=== PATIENT | female | born 1950 | race Caucasian/White ===

== ENCOUNTER → 2023-04-14 18:24 | Outpatient (CLI) | payer MEDICARE, SELFPAY ==
--- NOTE | 2023-04-14 18:26 | DI.RAD.S_ITS ---
PROCEDURE: XR FOOT LT MIN 3V INDICATIONS: Foot pain TECHNIQUE: 3 views of the foot were acquired. COMPARISON: None. FINDINGS: Bones: No fractures or dislocations. No suspicious bony lesions. Soft tissues: No tibiotalar joint effusion. Achilles tendon appears normal. IMPRESSION: Unremarkable left foot radiographs Approved by: Carter Telles M.D. on 04/15/2023 at 10:41
== END ==
PROVIDERS: Referring Provider Nurse Practitioner Family; Visit Provider Nurse Practitioner Family
DX: M79.672 Pain in left foot (principal)
CPT/HCPCS: 73630

== ENCOUNTER → 2023-05-16 17:17 | Outpatient (CLI) | payer MEDICARE, SELFPAY ==
--- NOTE | 2023-05-16 17:19 | DI.RAD.S_ITS ---
PROCEDURE: XR ANKLE LT MIN 3V INDICATIONS: Left ankle swelling TECHNIQUE: 3 views of the ankle were acquired. COMPARISON: [facility], CR, XR FOOT LT MIN 3V, 04/14/2023, 18:27. FINDINGS: Bones: No acute fractures or dislocations. Ankle mortise is normally aligned. No suspicious bony lesions. Soft tissues: Nonspecific soft tissue edema surrounding the ankle. IMPRESSION: No acute osseous abnormality. If clinical suspicion and/or symptoms persist, additional imaging with repeat plain films, or advanced imaging (e.g. CT, MRI) may be helpful for further assessment. Approved by: Pedro Lopez M.D. on 05/16/2023 at 18:01
--- NOTE | 2023-05-16 17:19 | DI.RAD.S_ITS ---
PROCEDURE: XR FOOT LT MIN 3V INDICATIONS: Left ankle swelling TECHNIQUE: Three views of the foot were acquired. COMPARISON: [facility], , XR FOOT LT MIN 3V, 04/14/2023, 18:27. FINDINGS: Bones: No acute fractures or dislocations. No suspicious bony lesions. Mild degenerative changes in the 1st metatarsophalangeal joint and the interphalangeal joints of the toes. Small posterior and plantar calcaneal enthesophytes. Soft tissues: Nonspecific soft tissue edema surrounding the ankle and midfoot. IMPRESSION: No acute osseous abnormality. If clinical suspicion and/or symptoms persist, additional imaging with repeat plain films, or advanced imaging (e.g. CT, MRI) may be helpful for further assessment. Approved by: Pedro Lopez M.D. on 05/16/2023 at 18:02
== END ==
PROVIDERS: Referring Provider Registered Nurse; Visit Provider Registered Nurse
DX: R22.42 Localized swelling, mass and lump, left lower limb (principal)
CPT/HCPCS: 73610; 73630